=== PATIENT | female | born 1960 | race Caucasian/White ===

== ENCOUNTER 2022-03-04 11:30 | Emergency (ER) | payer OTHER ==
--- NOTE | 2022-03-04 11:52 | ERPHSYRPT ---
- History of Present Illness Time Seen by Provider: 03/04/22 11:50 Source: patient Exam Limitations: no limitations Patient Subjective Stated Complaint: pt here for jaw pain and left shoulder pain off and on for a week now, she also co being tried, states pain eases at rest, no injury noted Triage Nursing Assessment: pt alert, resp easy, face mask in place, skin w/d/p. no edema noted Physician History: This is an overweight 61-year-old white female patient who for the last week has intermittent left jaw pain that goes to her back and into her left shoulder. Symptoms improved with rest. Food has no effect on her symptoms. Patient denies any problems with teeth decay or dental problems. She denies trauma to this area. Patient denies anterior chest pain. She has no cough. She has no shortness of breath. She has no abdominal pain. She denies fevers. She has no nausea vomiting or diarrhea symptoms. She is never had anything like this before. Patient has a history of hypertension, borderline diabetes and gastroesophageal reflux disease. Patient has no history of coronary artery disease or myocardial infarction in the past. Timing/Duration: week(s) (1) Severity: mild (To moderate) Associated Symptoms: denies symptoms Allergies/Adverse Reactions: codeine [Codeine] Allergy (Mild, Verified 06/29/12 15:37) Home Medications: Diclofenac Sodium 75 mg PO BID 10/29/14 [History] Esomeprazole Magnesium [Nexium 24Hr] 22.3 mg PO DAILY 10/29/14 [History] lisinopriL [Prinivil] 20 mg PO DAILY 10/29/14 [History] Hx Tetanus, Diphtheria Vaccination/Date Given: No Hx Influenza Vaccination/Date Given: No Hx Pneumococcal Vaccination/Date Given: No Immunizations Up to Date: Yes Travel Risk - International Travel Have you traveled outside of the country in past 3 weeks: No - Coronavirus Screening Are you exhibiting any of the following symptoms?: No - Vaccine Status Have you recieved a Covid-19 vaccination: Yes Wound Care Physician: Moderna - Vaccination Dates Date of 2cond Vaccination (if applicable): 2020 - Review of Systems Constitutional: No Symptoms Eyes: No Symptoms Ears, Nose, & Throat: Other (Left-sided jaw pain) Respiratory: No Symptoms Cardiac: No Symptoms Abdominal/Gastrointestinal: No Symptoms Genitourinary Symptoms: No Symptoms Musculoskeletal: No Symptoms Skin: No Symptoms Neurological: No Symptoms Psychological: No Symptoms Endocrine: No Symptoms Hematologic/Lymphatic: No Symptoms Immunological/Allergic: No Symptoms All Other Systems: Reviewed and Negative - Past Medical History Pertinent Past Medical History: Yes Neurological History: No Pertinent History ENT History: No Pertinent History Cardiac History: High Cholesterol, Hypertension Respiratory History: No Pertinent History Endocrine Medical History: Diabetes Type II Musculoskeletal History: Osteoarthritis GI Medical History: GERD, Pancreatitis, Other History: No Pertinent History Psycho-Social History: No Pertinent History Female Reproductive Disorders: Endometriosis Other Medical History: PANCREATIC STENT-BILE CLOSED, Hemangioma of liver - Past Surgical History Past Surgical History: Yes Neuro Surgical History: No Pertinent History Cardiac: Cardiac Catheterization Respiratory: No Pertinent History Gastrointestinal: Cholecystectomy, Other Genitourinary: No Pertinent History Musculoskeletal: No Pertinent History Female Surgical History: No Pertinent History Other Surgical History: RECENT LIVER SURGERY, ERCP, 1 stent placed in pancreas - Social History Smoking Status: Never smoker Exposure to second hand smoke: No Drug Use: none Patient Lives Alone: No Significant Family History: no pertinent family hx - Nursing Vital Signs Nursing Vital Signs: Initial Vital Signs Temperature 99.0 F 03/04/22 11:40 Pulse Rate 87 03/04/22 11:40 Respiratory Rate 18 03/04/22 11:40 Blood Pressure 163/74 03/04/22 11:40 O2 Sat by Pulse Oximetry 97 03/04/22 11:40 Pain Scale Pain Intensity 4 - Physical Exam General Appearance: no apparent distress, alert, anxiety, obese Eye Exam: PERRL/EOMI, eyes nml inspection Ears, Nose, Throat Exam: normal ENT inspection, moist mucous membranes Neck Exam: normal inspection, non-tender, supple, full range of motion Respiratory Exam: normal breath sounds, lungs clear, airway intact, No chest tenderness, No respiratory distress Cardiovascular Exam: regular rate/rhythm, normal heart sounds, normal peripheral pulses Gastrointestinal/Abdomen Exam: soft, normal bowel sounds, No tenderness Pelvic Exam: not done Rectal Exam: not done Back Exam: normal inspection, normal range of motion, No CVA tenderness, No vertebral tenderness Extremity Exam: normal inspection, normal range of motion, pelvis stable Neurologic Exam: alert, oriented x 3, cooperative, log buyer II-XII nml as tested, normal mood/affect, nml cerebellar function, nml station & gait, sensation nml Skin Exam: normal color, warm, dry Lymphatic Exam: No adenopathy SpO2 Interpretation: normal SpO2: 97 O2 Delivery: Room Air - Course Nursing assessment & vital signs reviewed: Yes EKG Interpreted by Me: RATE ([id number]), Sinus Rhythm, NORMAL AXIS, NORMAL INTERVALS, NORMAL QRS, Non-specific ST Changes (Anterior leads), Other (No acute ischemic changes on today's EKG.) Ordered Tests: Active Orders 24 hr Category Date Time Status Computational Mathematician STAT Care 03/04/22 11:53 Active EKG-ER Only STAT Care 03/04/22 11:52 Active Pulse Oximetry (ED) STAT Care 03/04/22 11:52 Active CBC W DIFF Stat Lab 03/04/22 12:10 Completed CMP Stat Lab 03/04/22 12:10 Completed D-DIMER QUANTITATIVE Stat Lab 03/04/22 12:10 Completed TROPONIN Q4H Lab 03/04/22 12:10 Received TROPONIN Q4H Lab 03/04/22 16:00 Ordered TROPONIN Q4H Lab 03/04/22 20:00 Ordered Lab/Rad Data: Laboratory Result Diagrams 03/04/22 12:10 03/04/22 12:10 Laboratory Results 03/04/22 03/04/22 03/04/22 Range/Units 12:10 12:10 12:10 WBC 5.2 (4.0-10.5) x10^3/uL RBC 4.11 (4.1-5.4) x10^6/uL Hgb 11.2 L (12.0-16.0) g/dL Hct 35.5 (35-47) % MCV 86.4 (78-100) fL MCH 27.3 (26-32) pg MCHC 31.5 L (32-36) g/dL RDW 16.3 H (11.5-14.0) % Plt Count 351 (150-450) x10^3/uL MPV 10.0 (7.5-11.0) fL Gran % 66.8 H (36.0-66.0) % Immature Gran % (Auto) 0.2 (0.00-0.4) % Nucleat RBC Rel Count 0.0 (0.00-0.1) % Eos # (Auto) 0.05 (0-0.5) x10^3/uL Immature Gran # (Auto) 0.01 (0.00-0.03) x10^3u/L Absolute Lymphs (auto) 1.40 (1.0-4.6) x10^3/uL Absolute Monos (auto) 0.24 (0.0-1.3) x10^3/uL Absolute Nucleated RBC 0.00 (0.00-0.01) x10^3u/L Lymphocytes % 27.0 (24.0-44.0) % Monocytes % 4.6 (0.0-12.0) % Eosinophils % 1.0 (0.00-5.0) % Basophils % 0.4 (0.0-0.4) % Absolute Granulocytes 3.47 (1.4-6.9) x10^3/uL Basophils # 0.02 (0-0.4) x10^3/uL D-Dimer 0.37 (0.0-0.50) mg/L Sodium 137 (137-145) mmol/L Potassium 4.2 (3.5-5.1) mmol/L Chloride 102 (98-107) mmol/L Carbon Dioxide 27 (22-30) mmol/L Anion Gap 11.9 (5-15) MEQ/L BUN 13 (7-17) mg/dL Creatinine 0.72 (0.52-1.04) mg/dL Estimated GFR > 60.0 ML/MIN Glucose 110 H (74-106) mg/dL Calcium 9.4 (8.4-10.2) mg/dL Total Bilirubin 0.40 (0.2-1.3) mg/dL AST 20 (14-36) U/L ALT 22 (0-35) U/L Alkaline Phosphatase 72 (38-126) U/L Serum Total Protein 7.1 (6.3-8.2) g/dL Albumin 4.7 (3.5-5.0) g/dL - Progress Progress: improved, re-examined Progress Note: 03/04/22 12:54 Patient has no chest pain. She is reexamined prior to her being discharged. Counseled pt/family regarding: lab results, diagnosis, need for follow-up - Departure Departure Disposition: Home Clinical Impression: Jaw pain Condition: Stable Critical Care Time: No Referrals: [facility] [NON-STAFF PHY W/O PRIVILEGES] - Follow up/PCP as directed Additional Instructions: Use Tylenol and ibuprofen for pain control. Call your primary care doctor's office today to make arrange for follow-up for further evaluation and managem ent.
[2022-03-04 12:25] LABS: Absolute Neutrophil Ct (ANC) 3.47 x10^3/uL (1.4-6.9); Basophil (Absolute #) 0.02 x10^3/uL (0-0.4); Eosinophil (Absolute #) 0.05 x10^3/uL (0-0.5); Hematocrit 35.5 % (35-47); Hemoglobin 11.2 g/dL (12.0-16.0); Mean Cell Volume 86.4 fL (78-100); Mean Corpuscular Hemoglobin 27.3 pg (26-32); Mean Corpuscular Hgb Concent. 31.5 g/dL (32-36); Monocyte (Absolute #) 0.24 x10^3/uL (0.0-1.3); Monocytes % 4.6 % (0.0-12.0); Neutrophil % 66.8 % (36.0-66.0); Platelet Count 351 x10^3/uL (150-450); Red Blood Count 4.11 x10^6/uL (4.1-5.4); Red Cell Distribution Width 16.3 % (11.5-14.0); White Blood Count 5.2 x10^3/uL (4.0-10.5)
[2022-03-04 12:31] LABS: ALBUMIN 4.7 g/dL (3.5-5.0); ALKALINE PHOSPHATASE 72 U/L (38-126); ANION GAP 11.9 MEQ/L (5-15); BLOOD UREA NITROGEN 13 mg/dL (7-17); CHLORIDE 102 mmol/L (98-107); Calcium 9.4 mg/dL (8.4-10.2); Carbon Dioxide 27 mmol/L (22-30); Creatinine 1 0.72 mg/dL (0.52-1.04); EST GLOMERULAR FILTRATION RATE > 60.0 ML/MIN; Glucose 110 mg/dL (74-106); Potassium 4.2 mmol/L (3.5-5.1); SGOT/AST 20 U/L (14-36); SGPT/ALT 22 U/L (0-35); SODIUM 137 mmol/L (137-145); Total Protein 7.1 g/dL (6.3-8.2)
[2022-03-04 13:05] VITALS: BP 132/65; PULSE 79; O2SAT 98
== END 2022-03-04 13:04 | disposition home or self-care (01) ==
LOC: ED 11:30
DX: R68.84 Jaw pain (principal); I10 Essential (primary) hypertension; E78.5 Hyperlipidemia, unspecified; E11.9 Type 2 diabetes mellitus without complications; Z79.899 Other long term (current) drug therapy
CPT/HCPCS: 36415; 80053; 84484; 85025; 85379; 99282